=== PATIENT | female | born 1985 | race Caucasian/White ===

== ENCOUNTER 2018-11-02 08:09 | Emergency (ER) | payer BC ==
[2018-11-02 08:13] VITALS: BP 128/60; BMI 35.9
[2018-11-02 09:59] VITALS: PULSE 90; TEMP 98.8
[2018-11-02 10:50] LABS: HEMATOCRIT 32.9 % (32.4-45.2); HEMOGLOBIN 11.5 GM/dL (10.7-15.3); MCH 28.7 pg (25.7-33.7); MCHC 34.9 g/dl (32.0-36.0); MEAN CELL VOLUME 82.1 fl (80-96); MEAN PLT VOLUME 7.3 fl (7.5-11.1); PLATELET COUNT 184 K/MM3 (134-434); RDW 15.3 % (11.6-15.6)
[2018-11-02 11:10] LABS: URINE APPEARANCE SLCLOUDY; URINE BILIRUBIN NEGATIVE (<2.0 mg/dL); URINE GLUCOSE (UA) NEGATIVE (NEGATIVE); URINE KETONE 2+ (NEGATIVE); URINE LEUK ESTERASE 3+ (NEGATIVE); URINE NITRITE NEGATIVE (NEGATIVE); URINE PROTEIN 1+ (NEGATIVE)
[2018-11-02 11:19] LABS: ALBUMIN 2.4 g/dl (3.4-5.0); ALK PHOS 147 U/L (45-117); ANION GAP 12 MMOL/L (8-16); BILIRUBIN,TOTAL 0.8 mg/dL (0.2-1); BLOOD UREA NITROGEN 14 mg/dL (7-18); CALCIUM 7.8 mg/dL (8.5-10.1); CHLORIDE 103 mmol/L (98-107); CO2 22 mmol/L (21-32); CREATININE 0.5 mg/dL (0.55-1.3); GLUCOSE,RANDOM 230 mg/dL (74-106); POTASSIUM 3.4 mmol/L (3.5-5.1); SGOT/AST 14 U/L (15-37); SGPT/ALT 17 U/L (13-61); SODIUM 137 mmol/L (136-145)
[2018-11-02 11:32] LABS: URINE COLOR YELLOW
[2018-11-02 11:41] LABS: EPI CELLS MANY /HPF (FEW); URINE BACTERIA RARE /hpf (NONE SEEN); URINE MUCUS RARE
== END 2018-11-02 12:25 | disposition home or self-care (01) ==
LOC: JER 08:09 → JERFT 08:09 → JER 12:25
DX: O26.893 Other specified pregnancy related conditions, third trimester (principal); R51 Headache; R11.2 Nausea with vomiting, unspecified; Z3A.37 37 weeks gestation of pregnancy
CPT/HCPCS: 36415; 80053; 81003; 81015; 85027; 99282-25

== ENCOUNTER 2018-11-16 05:45 | Inpatient (IN) | payer BC ==
[2018-11-16] MEDS ORDERED: CITRIC ACID/SODIUM CITRATE 30 ML UNIT-DOSE CUP PO ONE (06:00)
[2018-11-16] MEDS ORDERED: ELECTROLYTE-148 SOLN 500 ML IV ONE ×2 (06:00→06:30)
[2018-11-16 06:20] VITALS: BMI 35.9
[2018-11-16] MEDS ORDERED: TUBERCULIN PPD 5 TU/0.1ML SYRINGE (IN PATIENT USE ONLY) ID ONE (07:30)
[2018-11-16] MEDS ORDERED: morphine SULFATE/Preservative Free 0.5 MG/ML (1cc Syringe) ONE (07:43)
[2018-11-16] MEDS ORDERED: ePHEDrine SULFATE 50 MG/1 ML AMPULE ONE (07:43)
[2018-11-16] MEDS ORDERED: PHENYLEPHRINE HCL 10 MG/1 ML SINGLE DOSE VIAL ONE (07:45)
[2018-11-16] MEDS ORDERED: OXYTOCIN 10 UNITS/ML VIAL ONE ×2 (07:45→09:01)
[2018-11-16] MEDS ORDERED: ceFAZolin SODIUM 1 GM VIAL ONE (07:48)
--- NOTE | 2018-11-16 07:58 | HP ---
Past Medical History - Primary Care Physician PCP:: Connie Solo - Admission Chief Complaint: 33yo P1 @ 39.3 wks with prior c/section, undocumented scar, for repeat c/section History of Present Illness: 1. h/o c/section - CPD 9lb fetus, no scar documented 2. BMI 30 3. Flu shot and Tdap this History Source: Patient, Medical Record Limitations to Obtaining History: No Limitations - Past Medical History ...: 2 ...Para: 1 ...Term: 1 ...: 0 ...Spon : 0 ...Induced : 0 ...Multiple Gestation: 0 ...LMP: 02/16/18 ... Weeks Gestation by Dates: 39.0 ...EDC by Dates: 11/23/18 - Past Surgical History Past Surgical History: Yes: Breast Biopsy, Hx Myomectomy: No Hx Transabdominal Cerclage: No - Smoking History Smoking history: Never smoked Have you smoked in the past 12 months: No - Alcohol/Substance Use Hx Alcohol Use: No History of Substance Use: reports: None - Social History Usual Living Arrangement: Yes: With Spouse History of Recent Travel: No Home Medications - Allergies Allergies/Adverse Reactions: Allergies Allergy/AdvReac Type Severity Reaction Status Date / Time No Known Allergies Allergy Verified 11/16/18 06:06 - Home Medications Home Medications: Ambulatory Orders Vitamins (Sjr) - 1 tab PO DAILY 11/16/18 Review of Systems - Review of Systems Constitutional: reports: No Symptoms Eyes: reports: No Symptoms HENT: reports: No Symptoms Neck: reports: No Symptoms Cardiovascular: reports: No Symptoms Respiratory: reports: No Symptoms Gastrointestinal: reports: No Symptoms Genitourinary: reports: No Symptoms Breasts: reports: No Symptoms Reported Musculoskeletal: reports: No Symptoms Integumentary: reports: No Symptoms Neurological: reports: No Symptoms Endocrine: reports: No Symptoms Hematology/Lymphatic: reports: No Symptoms Psychiatric: reports: No Symptoms Physical Exam - Maternity Vital Signs: Vital Signs Temperature 98.6 F 11/16/18 07:30 Pulse Rate 88 11/16/18 07:30 Respiratory Rate 20 11/16/18 07:30 Blood Pressure 121/75 11/16/18 07:30 O2 Sat by Pulse Oximetry (%) Constitutional: Yes: Well Nourished Eyes: Yes: WNL HENT: Yes: WNL, Atraumatic, Normocephalic Neck: Yes: WNL, Supple, Trachea Midline Cardiovascular: Yes: WNL, Regular Rate and Rhythm Lungs: Clear to auscultation Breast(s): Yes: WNL - Abdominal Exam/OB Fundal Height: 39 Number of Fetuses: Single Presentation: Vertex Contractions: No Monitor Mode: External Heart Rate (range): 140 Heart Rate Location: Midline Category: I Accelerations: Uniform Decelerations: None - Vaginal Exam/OB Vaginal Bleediing: No Dilatation (cm): n/a - Physical Exam Musculoskeletal: Yes: WNL Extremities: Yes: WNL Edema: No Integumentary: Yes: WNL ...Motor Strength: WNL Psychiatric: Yes: WNL, Alert, Oriented - Labs Lab Results: Apos/RI/NR/HepB neg/HIV neg/GCT-84 Assessment/Plan 33yo P1 @ 39.3wks with unknown scar for repeat c/section The pt is not in labor. The fetus with Category I tracing. The decision was made to proceed with delivery by C/S. We discussed the risks and benefits of C/S at length, including but not limited to scarring, pain, bleeding, infection, injury to underlying organs and structures, need for additional surgery to repair/treat any problems or complications, complications/injuries, etc. The pt verbalized her understanding and requested to proceed with surgery. Labs sent, T&C, NPO Anesthesia aware
[2018-11-16] MEDS ORDERED: ELECTROLYTE-148 SOLN 1,000 ML IV SCH ×2 (08:00)
[2018-11-16 09:04] LABS: ARTERIAL BLOOD GAS BASE EXCESS -8.5 meq/l (-2-2); ARTERIAL BLOOD GAS PCO2 87.3 mmHg (35-45); ARTERIAL BLOOD GAS PO2 11.9 mmHg (80-100); ARTERIAL BLOOD GAS pH 7.08 (7.35-7.45)
[2018-11-16 09:13] LABS: VENOUS PC02 71.4 mmHg (38-52); VENOUS PH 7.15 (7.32-7.42); VENOUS PO2 18.3 mmHg (28-48)
--- NOTE | 2018-11-16 09:43 | OP ---
Operative Note - Note: Operative Date: 11/16/18 Pre-Operative Diagnosis: 33 P1 @ 39.3 wks prior c/section, unknown scar, for repeat c/section Operation: 1st time repeat c/section Findings: Viable male, TANMAY presentation, APGARs 9/9, 7.14lb normal Bl tubes and ovaries Post-Operative Diagnosis: Same as Pre-op Surgeon: Connie Solo Railroad Brake Repairer: John Paul Alfaro Anesthesiologist/PRIMER POWDER BLENDER WET: René Gamez Anesthesia: Spinal Estimated Blood Loss (mls): 500 Drains, Volume Out (mls): 150 Fluid Volume Replaced (mls): 1,100 Operative Report Dictated: Yes
[2018-11-16] MEDS ORDERED: diphenhydrAMINE HCL 25 MG CAPSULE (FP) PO PRN (09:47)
[2018-11-16] MEDS ORDERED: oxyCODONE HCL 5 MG TABLET PO PRN ×2 (09:47)
[2018-11-16] MEDS ORDERED: BENZOCAINE 28 GM HEMORRHOIDAL OINTMENT PR PRN (09:47)
[2018-11-16] MEDS ORDERED: BENZOCAINE 20% 57 GM BOTTLE TP PRN (09:47)
[2018-11-16] MEDS ORDERED: WITCH HAZEL 50% (TUCKS) 40 PAD/JAR PAD TP PRN (09:47)
[2018-11-16] MEDS ORDERED: METHYLERGONOVINE MALEATE 0.2 MG/1 ML AMP IM PRN (09:47)
--- NOTE | 2018-11-16 09:47 | PN ---
Delivery - Delivery Section: Repeat Type of Anesthesia: Spinal EBL (cc): 500 Delivery, Single - Stages of Labor Date of Delivery: 11/16/18 Time of Delivery: 08:30 Date Placenta Delivered: 11/16/18 Time Placenta Delivered: :31 Placenta: Yes: Expressed - Condition of Abrasive Mixer Helper/Pacs Specialist Present: Yes Name: Shanika Harrison Infant Gender: Male Weight: 7 lb 14 oz Position: Left, OA - 1 Minute Total Score: 9 5 Minutes Total Score: 9 - Feeding Plan Initial Plan: Elected not to breastfeed exclusively throughout hospitalization Remarks - Remarks Remarks: Uncomplicated 1st time repeat c/section
[2018-11-16] MEDS ORDERED: OXYTOCIN 20 UNITS in 0.9% NS 20 UNIT/1,000 ML INFUS.BAG IV SCH (10:00)
[2018-11-16] MEDS ORDERED: DEXTROSE 5%-LACTATED RINGERS 1,000 ML IV SCH (10:00)
[2018-11-16] MEDS ORDERED: ONDANSETRON 4 MG/2 ML VIAL IVPUSH PRN (10:10)
[2018-11-16] MEDS ORDERED: IBUPROFEN 800 MG/8 ML IJ IVPB ONE (10:36)
[2018-11-16] MEDS: IBUPROFEN 800 MG/8 ML IJ IVPB PRN ×2 (10:45→19:42)
[2018-11-16] MEDS: CEFAZOLIN 1 GM/D5W 1 GM/50 ML BAG IVPB SCH (16:00)
[2018-11-17] MEDS: CEFAZOLIN 1 GM/D5W 1 GM/50 ML BAG IVPB SCH (00:52)
[2018-11-17] MEDS: IBUPROFEN 800 MG/8 ML IJ IVPB PRN (05:33)
[2018-11-17 07:15] LABS: BASO % 0.2 % (0-2.0); EOS % 1.6 % (0-4.5); HEMATOCRIT 32.4 % (32.4-45.2); HEMOGLOBIN 10.5 GM/dL (10.7-15.3); LYMPH % 9.9 % (8-40); MCH 27.1 pg (25.7-33.7); MCHC 32.6 g/dl (32.0-36.0); MEAN CELL VOLUME 83.2 fl (80-96); MEAN PLT VOLUME 7.3 fl (7.5-11.1); NEUT % 81.3 % (42.8-82.8); PLATELET COUNT 185 K/MM3 (134-434); RBC 3.89 M/mm3 (3.60-5.2); RDW 15.4 % (11.6-15.6); WHITE BLOOD COUNT 8.6 K/mm3 (4.0-10.0)
[2018-11-17] MEDS ORDERED: BISACODYL 10 MG SUPP.RECT RC PRN (09:47)
[2018-11-17] MEDS: ENOXAPARIN NA (PORCINE) 40 MG/0.4 ML DISP.SYRIN SQ SCH (10:47)
[2018-11-17] MEDS: SIMETHICONE 80 MG TAB.CHEW (FP) PO PRN ×3 (10:54→23:28)
--- NOTE | 2018-11-17 15:06 | PN ---
Progress Note (short form) - Note Progress Note: Anesthesiology Post-op 33 y.o. woman POD#1 s/p C/S with spinal anesthesia. Pt. is feeling well. She is able to walk as well as void without difficulty. She denies h/a. Pain is under control. VSS. 33 y.o. woman with stable post-operative course, no anesthesia-related issues. Continue Management as per primary team.
[2018-11-17] MEDS: IBUPROFEN 600 MG TABLET (FP) PO PRN ×2 (15:48→23:28)
--- NOTE | 2018-11-17 17:36 | PN ---
Post Progress Note Post Day: 1 Type of Delivery: Repeat C/S Vital Signs: Vital Signs Temperature 99.3 F 11/17/18 14:00 Pulse Rate 90 11/17/18 14:00 Respiratory Rate 20 11/17/18 14:00 Blood Pressure 105/57 L 11/17/18 14:00 O2 Sat by Pulse Oximetry (%) 97 11/16/18 12:45 Breast Exam: Yes: Soft Uterus: Yes: Fundus Firm Incision: Yes: Dressing dry and intact Abdomen/GI: Yes: Abdomen soft Lochia: Yes: Rubra - Labs Labs: CBC WBC 8.6 K/mm3 (4.0-10.0) 11/17/18 06:15 RBC 3.89 M/mm3 (3.60-5.2) 11/17/18 06:15 Hgb 10.5 GM/dL (10.7-15.3) L 11/17/18 06:15 Hct 32.4 % (32.4-45.2) 11/17/18 06:15 MCV 83.2 fl (80-96) 11/17/18 06:15 MCH 27.1 pg (25.7-33.7) 11/17/18 06:15 MCHC 32.6 g/dl (32.0-36.0) 11/17/18 06:15 RDW 15.4 % (11.6-15.6) 11/17/18 06:15 Plt Count 185 K/MM3 (134-434) 11/17/18 06:15 MPV 7.3 fl (7.5-11.1) L 11/17/18 06:15 Absolute Neuts (auto) 7.0 K/mm3 (1.5-8.0) 11/17/18 06:15 Neutrophils % 81.3 % (42.8-82.8) 11/17/18 06:15 Lymphocytes % 9.9 % (8-40) D 11/17/18 06:15 Monocytes % 7.0 % (3.8-10.2) 11/17/18 06:15 Eosinophils % 1.6 % (0-4.5) 11/17/18 06:15 Basophils % 0.2 % (0-2.0) 11/17/18 06:15 Nucleated RBC % 0 % (0-0) 11/17/18 06:15 Assessment/Plan 33yo P2 now s/p Repeat c/section doing well, VSS, Afebrile voiding, neg flatus encourage ambulation cont. routine care
[2018-11-17] MEDS: SENNOSIDES/DOCUSATE COMBO (SENNA PLUS) TABLET (UD) PO PRN (21:23)
[2018-11-18] MEDS: SIMETHICONE 80 MG TAB.CHEW (FP) PO PRN ×3 (07:45→21:51)
[2018-11-18] MEDS: IBUPROFEN 600 MG TABLET (FP) PO PRN ×3 (07:45→21:50)
[2018-11-18] MEDS: ENOXAPARIN NA (PORCINE) 40 MG/0.4 ML DISP.SYRIN SQ SCH (10:32)
--- NOTE | 2018-11-18 11:30 | PN ---
Post Progress Note - Subjective Subjective: no complains, + flatus Post Day: 2 Type of Delivery: Repeat C/S Vital Signs: Vital Signs Temperature 98.6 F 11/18/18 10:00 Pulse Rate 74 11/18/18 10:00 Respiratory Rate 20 11/18/18 10:00 Blood Pressure 111/51 L 11/18/18 10:00 O2 Sat by Pulse Oximetry (%) 97 11/16/18 12:45 Breast Exam: Yes: Soft Uterus: Yes: Fundus Firm Incision: Yes: Dressing dry and intact, Sutures intact Abdomen/GI: Yes: Abdomen soft, Passing flatus Lochia: Yes: Rubra - Labs Labs: CBC WBC 8.6 K/mm3 (4.0-10.0) 11/17/18 06:15 RBC 3.89 M/mm3 (3.60-5.2) 11/17/18 06:15 Hgb 10.5 GM/dL (10.7-15.3) L 11/17/18 06:15 Hct 32.4 % (32.4-45.2) 11/17/18 06:15 MCV 83.2 fl (80-96) 11/17/18 06:15 MCH 27.1 pg (25.7-33.7) 11/17/18 06:15 MCHC 32.6 g/dl (32.0-36.0) 11/17/18 06:15 RDW 15.4 % (11.6-15.6) 11/17/18 06:15 Plt Count 185 K/MM3 (134-434) 11/17/18 06:15 MPV 7.3 fl (7.5-11.1) L 11/17/18 06:15 Absolute Neuts (auto) 7.0 K/mm3 (1.5-8.0) 11/17/18 06:15 Neutrophils % 81.3 % (42.8-82.8) 11/17/18 06:15 Lymphocytes % 9.9 % (8-40) D 11/17/18 06:15 Monocytes % 7.0 % (3.8-10.2) 11/17/18 06:15 Eosinophils % 1.6 % (0-4.5) 11/17/18 06:15 Basophils % 0.2 % (0-2.0) 11/17/18 06:15 Nucleated RBC % 0 % (0-0) 11/17/18 06:15 Assessment/Plan 33yo P2 now s/p Repeat c/section doing well, VSS, Afebrile voiding, +BM encourage ambulation Baby boy s/p circumcision cont. routine care
[2018-11-18] MEDS: SENNOSIDES/DOCUSATE COMBO (SENNA PLUS) TABLET (UD) PO PRN (21:51)
[2018-11-19 08:30] LABS: BASO % 0.4 % (0-2.0); EOS % 3.4 % (0-4.5); HEMATOCRIT 30.5 % (32.4-45.2); HEMOGLOBIN 10.8 GM/dL (10.7-15.3); LYMPH % 25.5 % (8-40); MCH 29.4 pg (25.7-33.7); MCHC 35.6 g/dl (32.0-36.0); MEAN CELL VOLUME 82.5 fl (80-96); MEAN PLT VOLUME 7.9 fl (7.5-11.1); MONO % 8.3 % (3.8-10.2); NEUT % 62.4 % (42.8-82.8); PLATELET COUNT 246 K/MM3 (134-434); RBC 3.69 M/mm3 (3.60-5.2); RDW 15.4 % (11.6-15.6); WHITE BLOOD COUNT 6.6 K/mm3 (4.0-10.0)
[2018-11-19] MEDS: IBUPROFEN 600 MG TABLET (FP) PO PRN (08:52)
[2018-11-19] MEDS: ENOXAPARIN NA (PORCINE) 40 MG/0.4 ML DISP.SYRIN SQ SCH (08:57)
[2018-11-19 10:10] VITALS: BP 107/62; PULSE 78; TEMP 97.8
--- NOTE | 2018-11-19 10:14 | DS ---
Physical Exam-[employer] DRIVER Vital Signs: Vital Signs Temperature 97.8 F 11/19/18 10:00 Pulse Rate 78 11/19/18 10:00 Respiratory Rate 20 11/19/18 10:00 Blood Pressure 107/62 11/19/18 10:00 O2 Sat by Pulse Oximetry (%) 97 11/16/18 12:45 Constitutional: Yes: Well Nourished, No Distress, Calm Eyes: Yes: WNL, Conjunctiva Clear, EOM Intact HENT: Yes: WNL, Atraumatic, Normocephalic Neck: Yes: WNL, Supple, Trachea Midline Cardiovascular: Yes: WNL, Regular Rate and Rhythm Respiratory: Yes: WNL, Regular, CTA Bilaterally Gastrointestinal: Yes: WNL, Normal Bowel Sounds, Soft Renal/: Yes: WNL Pelvis: Yes: WNL External Genitalia: Yes: Normal Internal Exam Deferred: Yes ....Post : Yes: Uterus firm, Uterus non-tender Breast(s): Yes: WNL Musculoskeletal: Yes: WNL Extremities: Yes: WNL Edema: No Integumentary: Yes: WNL Wound/Incision: Yes: Clean/Dry, Well Approximated Neurological: Yes: WNL, Alert, Oriented ...Motor Strength: WNL Psychiatric: Yes: WNL, Alert, Oriented Labs: CBC, BMP 11/19/18 06:30 Delivery - Delivery Section: Repeat Type of Anesthesia: Spinal EBL (cc): 500 Delivery, Single - Stages of Labor Date of Delivery: 11/16/18 Time of Delivery: 08:30 Time Placenta Delivered: 08:31 Placenta: Yes: Expressed - Condition of Infant Traffic Expert/Drafter Electronic Present: Yes Name: Shanika Harrison Gender: Male Weight: 7 lb 14 oz Position: Left, OA Total Hours ROM (Hrs/Mins): 2 min - 1 Minute Total Score: 9 5 Minutes Total Score: 9 - [place] Feeding Plan Initial Plan: Elected not to breastfeed exclusively throughout hospitalization Discharge Summary Reason For Visit: ADMIT C/S Procedures: Principal: Repeat LST c/section Other Procedures: circumcision Condition: Good - Instructions Diet, Activity, Other Instructions: Physical activity Resume your normal everyday activity as tolerated no heavy lifting or exercise until seen by your surgeon. You may walk unlimited patricia of and climb stairs. You may resume driving the car when you feel safe and comfortable behind the wheel. No sexual activity as instructed. Wound care If you have a bandage, leave it on, and keep dry for 48-72 hours. After that time discard the outer bandage. If they are tapes on the skin under the out of bandage leave them in place. They will peel off in the next 7 to 10 days. Do Not Peel them off. You may shower the day after surgery. If there are tapes present on the skin, you may shower over them. Diet There are no dietary restrictions. Eat healthy, high-fiber foods. Drink 6 to 8 glasses of liquid each day. This will assist in keeping your bowels are regular. Pain management You may take Tylenol or acetaminophen or Ibuprofen (for example, Motrin, Advil etc.) from my pain prescription medication is ordered should be taken as prescribed for moderate to severe pain. Call MD for any of the following: Severe pain not relieved by medication Fever of 101 or higher Excessive bleeding or drainage on dressing Inability to urinate Referrals: Connie Solo MD [Staff Physician] - Disposition: HOME - Home Medications Comprehensive Discharge Medication List: Ambulatory Orders Vitamins (Sjr) - 1 tab PO DAILY 11/16/18
--- NOTE | 2018-11-20 23:36 | OP ---
DATE OF OPERATION: 11/16/2018 PREOPERATIVE DIAGNOSIS: A 33-year-old para 1 at 39 and 3/7 weeks with prior section, unknown scar, for repeat section. OPERATION: First time repeat low segment transverse section. FINDINGS: Viable male, TANMAY presentation, Apgars 9 and 9, 7 pounds 14 ounces, normal bilateral tubes and ovaries noted. POSTOPERATIVE DIAGNOSIS: A 33-year-old para 1 at 39 and 3/7 weeks with prior section, unknown scar, for repeat section. SURGEON: Connie Solo M.D. PLACEMENT SECRETARY: John Paul Alfaro M.D. ANESTHESIOLOGIST: René Gamez D.O. ANESTHESIA: Spinal DESCRIPTION OF OPERATIVE PROCEDURE: After insuring informed consent, the patient was brought to the operating room where she was placed in dorsal supine position with left lateral tilt. Patient's BMI was over 35 so additional retraction by personal assistant was necessary. The abdomen was prepped and draped in sterile fashion. Pfannenstiel skin incision was created with scalpel, carried down to the level of fascia with Bovie cautery. The fascia was incised and the fascia incision was extended bilaterally with Bovie cautery. The fascia was dissected off the rectus abdominis muscle with Bovie cautery. Muscle was closed in the midline, peritoneum was entered with good visualization of underlying organs. The peritoneal incision was extended, stretched bilaterally. Bladder was retracted with Filemon, vesicouterine peritoneum was noted and dissected bilaterally, bladder flap created and retracted with a Farwell, uterine incision was made with scalpel and extended bilaterally with bandage scissors. Infant's head was visualized and delivered atraumatically. suction at the level of the incision. The rest of the patient's body was delivered atraumatically, and cord was clamped and cut. Infant was handed to waiting tube building machine operator. Placenta was expressed. Uterus was cleared of clots and debris, and repaired with 0 Biosyn in running, locking fashion. Significant oozing was noted, and personal assistant Dr. Alfaro was able to retract sufficiently in order to expedite the closure of the uterine muscle, second layer of uterine muscle closure was created as well. The bladder flap was repaired, excellent hemostasis was noted. The peritoneum was closed with 0 Biosyn, muscle was reapproximated at the midline, the fascia was closed with 0 Vicryl, subcuticular stitches were placed to reapproximate the incision, and incision was closed with 4-0 Biosyn in running fashion. Estimated blood loss was 500 mL, urine output was 150 mL, and patient received 1100 mL of fluids. Instruments and sponge count was correct x2. Patient was expressed of clots and was brought to the recovery room in stable condition. Sidney [id number]
--- NOTE | 2018-11-23 14:31 | PATH ---
Surgical Pathology Report Patient Name: MANJIT SALINAS Med. Rec. #: [id number] /Age/Gender: 1985 (Age: 33) / F Account: [id number] Location: [facility] OBS/BILLING CLERK Taken: 11/16/2018 Received: 11/19/2018 Reported: 11/23/2018 Physicians: Connie Solo M.D. Specimen(s) Received PLACENTA Clinical History for repeat EDC-11/23/18 x1-2012 Final Diagnosis PLACENTA: THIRD TRIMESTER PLACENTA. TRIVASCULAR CORD. MEMBRANES WITH NO DIAGNOSTIC ABNORMALITIES. Electronically Signed Marylou Rivers M.D. Gross Description The specimen is received fresh labeled placenta and is a 588 gram, 20.5 x 18.5 x 2.3 cm. placenta with attached membranes and umbilical cord. The attached membranes are ford, translucent with focal opacities and insert marginally. The umbilical cord measures 12 cm. in length and averages 1.1 cm. in diameter. The cord inserts centrally. No true knots or strictures are identified. Cut surface of the umbilical cord reveals 3 vessels. The surface is yu blue with moderate fibrin deposition and appropriate caliber vessels. The maternal surface is red-brown with focal defects. Sectioning reveals red-brown, spongy parenchyma. No lesions are identified. Train Announcer sections are submitted in three cassettes as follows: 1- membrane rolls and umbilical cord; 2-3- full thickness sections of placenta. /11/22/2018 saudi/11/22/2018
== END 2018-11-19 13:00 | disposition home or self-care (01) | DRG 788 ==
LOC: JLDR 05:45 → EDUNIT# 07:30 → J3W 12:45
PROVIDERS: ADMIT Obstetrics & Gynecology; ATTEND Obstetrics & Gynecology
PROC: 10D00Z1 Extraction of Products of Conception, Low, Open Approach (ICD-10-PCS; principal; 2018-11-16)
DX: O34.211 Maternal care for low transverse scar from previous cesarean delivery (principal); Z3A.39 39 weeks gestation of pregnancy; Z37.0 Single live birth
CPT/HCPCS: 36415; 36600; 82803; 85025; 86850; 86900; 86901; 88307-TC